=== PATIENT | female | born 1985 | race Caucasian/White ===

== ENCOUNTER 2019-06-19 22:31 | Emergency (ER) | payer SELFPAY ==
[2019-06-19] MEDS: KETOROLAC 30 MG INJ IM (22:51)
[2019-06-19] MEDS: ONDANSETRON (ODT) 4 MG TAB ODT (22:51)
== END 2019-06-20 01:28 | disposition home or self-care (01) ==
LOC: E/R 22:31
DX: S16.1XXA Strain of muscle, fascia and tendon at neck level, initial encounter (principal); G44.209 Tension-type headache, unspecified, not intractable; V49.50XA Passenger injured in collision with unspecified motor vehicles in traffic accident, initial encounter
CPT/HCPCS: 96372; 99284-25